=== PATIENT | male | born 1960 | race African-American/Black ===

== ENCOUNTER 2023-07-24 14:11 | Inpatient (IN) | payer OTHER ==
[2023-07-24 15:37] VITALS: BMI 33.2
[2023-07-24] MEDS ORDERED: chlordiazePOXIDE HCL 25 MG CAPSULE PO PRN (17:11)
[2023-07-24] MEDS ORDERED: IBUPROFEN 400 MG TABLET (FP) PO PRN (17:25)
[2023-07-24] MEDS ORDERED: METHOCARBAMOL 500 MG TABLET PO PRN (17:25)
[2023-07-24] MEDS ORDERED: POLYETHYLENE GLYCOL (HEALTHYLAX) 3350 17 GM PACKET PO PRN (17:25)
[2023-07-24] MEDS ORDERED: BISMUTH SUBSALICYLATE 524 MG/30 ML PO PRN (17:25)
[2023-07-24] MEDS ORDERED: ACETAMINOPHEN 325 MG TABLET (FP) PO PRN (17:25)
[2023-07-24] MEDS ORDERED: DICYCLOMINE HCL 10 MG CAPSULE PO PRN (17:25)
[2023-07-24] MEDS ORDERED: LOPERAMIDE HCL 2 MG CAPSULE PO PRN (17:25)
[2023-07-24] MEDS ORDERED: guaiFENesin 600 MG TABLET.ER (FP) PO PRN (17:25)
[2023-07-24] MEDS ORDERED: IBUPROFEN 600 MG TABLET (FP) PO PRN (17:25)
[2023-07-24] MEDS ORDERED: MAGNESIUM HYDROX 2400MG/30ML ORAL SUSPENSION 30 ML CUP PO PRN (17:25)
[2023-07-24] MEDS ORDERED: BENZOCAINE/MENTHOL (CHLORASEPTIC ) LOZENGE MM PRN (17:25)
[2023-07-24] MEDS ORDERED: BENZONATATE 200 MG CAPSULE PO PRN (17:25)
[2023-07-24] MEDS ORDERED: MAG HYDROX/AL HYDROX/SIMETH 30 ML UNIT-DOSE CUP PO PRN (17:25)
[2023-07-24] MEDS ORDERED: ONDANSETRON *ODT* 4 MG TABLET SL PRN (17:25)
[2023-07-24] MEDS ORDERED: METOPROLOL TARTRATE 50 MG TABLET (FP) PO ONE (17:26)
[2023-07-24] MEDS ORDERED: METOPROLOL TARTRATE 25 MG TABLET (FP) ONE (18:23)
[2023-07-24] MEDS: METOPROLOL TARTRATE 25 MG TABLET (FP) PO ONE (18:26)
[2023-07-24] MEDS: ASPIRIN COATED 81 MG TABLET.EC PO SCH (19:26)
[2023-07-24] MEDS: chlordiazePOXIDE HCL 25 MG CAPSULE PO SCH (22:55)
[2023-07-24] MEDS: MELATONIN 5 MG TABLETS PO SCH (22:55)
[2023-07-24] MEDS: CEFUROXIME AXETIL 500 MG TABLET PO SCH (22:55)
[2023-07-24] MEDS: THIAMINE 100 MG TABLET PO SCH (22:55)
[2023-07-24] MEDS: LABETALOL HCL 200 MG TABLET (FP) PO SCH (22:56)
[2023-07-24] MEDS: hydrALAZINE HCL 25 MG TABLET (FP) PO SCH (22:56)
[2023-07-25] MEDS: chlordiazePOXIDE HCL 25 MG CAPSULE PO SCH (04:15)
[2023-07-25] MEDS: FOLIC ACID 1 MG TABLET (FP) PO SCH (10:29)
[2023-07-25] MEDS: ALLOPURINOL 300 MG TABLET (FP) PO SCH (10:29)
[2023-07-25] MEDS: PRENATAL VITAMINS W/ FOLIC ACID TABLET (FP) PO SCH (10:29)
[2023-07-25] MEDS: LISINOPRIL 20 MG TABLET PO SCH (10:30)
[2023-07-25] MEDS: NIFEdipine E.R. 30 MG TABLET PO SCH (10:30)
[2023-07-25 11:16] LABS: HEMATOCRIT 39.2 % (35.4-49); MCH 31.2 pg (25.7-33.7); MCHC 33.2 g/dl (32.0-35.9); MEAN PLT VOLUME 10.1 fl (7.5-11.1); PLATELET COUNT 290 10^3/uL (134-434); RBC 4.17 M/mm3 (4.00-5.60); WHITE BLOOD COUNT 10.7 K/mm3 (4.0-10.0)
[2023-07-25 11:43] LABS: CALCIUM 9.9 mg/dL (8.5-10.1)
[2023-07-25 11:44] LABS: ALBUMIN 3.1 g/dl (3.4-5.0); BLOOD UREA NITROGEN 7.9 mg/dL (7-18); POTASSIUM 3.9 mmol/L (3.5-5.1)
[2023-07-25 11:49] LABS: CREATININE 1.2 mg/dL (0.55-1.3)
[2023-07-25 11:51] LABS: BILIRUBIN,TOTAL 0.4 mg/dL (0.2-1); TOT PROT 6.8 g/dl (6.4-8.2)
[2023-07-26] MEDS: chlordiazePOXIDE HCL 10 MG CAPSULE PO SCH (05:30)
[2023-07-27] MEDS ORDERED: chlordiazePOXIDE HCL 10 MG CAPSULE PO PRN
[2023-07-27] MEDS: chlordiazePOXIDE HCL 10 MG CAPSULE PO SCH (05:43)
[2023-07-28 17:02] VITALS: RESP 16
[2023-07-29] MEDS: chlordiazePOXIDE HCL 10 MG CAPSULE PO ONE (05:49)
[2023-07-29] MEDS: hydrALAZINE HCL 50 MG TABLET (FP) PO SCH ×2 (06:18→07:54)
[2023-07-29 06:21] VITALS: TEMP 97.6
[2023-07-29] MEDS ORDERED: hydrALAZINE HCL 25 MG TABLET (FP) PO SCH (07:08)
[2023-07-29 09:41] VITALS: BP 149/83; PULSE 84
== END 2023-07-29 11:12 | disposition home or self-care (01) | DRG 775 ==
LOC: YASAS 14:11 → Y6N 17:50 → Y3N 17:59
PROVIDERS: ADMIT Allergy & Immunology; ATTEND Surgery
PROC: HZ2ZZZZ Detoxification Services for Substance Abuse Treatment (ICD-10-PCS; principal; 2023-07-24)
DX: F10.230 Alcohol dependence with withdrawal, uncomplicated (principal); G47.33 Obstructive sleep apnea (adult) (pediatric); I10 Essential (primary) hypertension; M10.9 Gout, unspecified; J18.9 Pneumonia, unspecified organism; R26.89 Other abnormalities of gait and mobility; Z86.73 Personal history of transient ischemic attack (TIA), and cerebral infarction without residual deficits; Z99.89 Dependence on other enabling machines and devices; Z88.0 Allergy status to penicillin
CPT/HCPCS: 36415; 80053; 85027; 86780; 93005; 93010